=== PATIENT | female | born 1940 | race Caucasian/White ===

== ENCOUNTER 2017-01-17 18:40 | Emergency (ER) | payer MEDICARE, OTHER ==
[~2017-01-17] VITALS: Ht 154.9 cm; Wt 63.5 kg
[~2017-01-17 18:40] MED LIST: ASPIRIN325 MG PO; BIOSUPP473 ML PO; COZAAR25 MG PO; CRESTOR10 MG PO; NORVASC2.5 MG PO; TOPROL XL25 MG PO; VESICARE5 MG PO
[2017-01-17] MEDS ORDERED: EDARBYCLOR 40-1 EACH PO (19:20)
[2017-01-17] MEDS ORDERED: LIPITOR80 MG PO (19:20)
[2017-01-17] MEDS ORDERED: PLAVIX75 MG PO (19:21)
== END 2017-01-17 19:50 | disposition short-term general hospital (02) ==
LOC: ER 18:40
DX: J06.9 Acute upper respiratory infection, unspecified (principal); R06.02 Shortness of breath; Z79.899 Other long term (current) drug therapy